=== PATIENT | male | born 1965 | race Caucasian/White ===

== ENCOUNTER 2016-07-07 23:27 | Emergency (ER) | payer OTHER | END 2016-07-08 00:45 | disposition home or self-care (01) | LOC: D.ER 23:27 | DX: R19.04 Left lower quadrant abdominal swelling, mass and lump (principal); F17.200 Nicotine dependence, unspecified, uncomplicated ==

== ENCOUNTER 2019-11-25 19:26 | Emergency (ER) | payer MEDICAID ==
[~2019-11-25] VITALS: Ht 177.8 cm; Wt 79.8 kg
[2019-11-25 19:54] VITALS: Ht 177.8 cm; Wt 79.8 kg
[2019-11-25 20:24] LABS: BASOPHILS 0.2 % (0-2); EOSINOPHILS 1.3 % (0-7); HEMATOCRIT 40.3 % (42.0-54.0); IMMATURE GRANULOCYTES 0.3 % (0-5); LYMPHOCYTES 24.1 % (15-50); MCH 31.7 pg (26.0-34.0); MCHC 34.7 g/dL (31.0-37.0); MCV 91.4 fL (80.0-100.0); MEAN PLATELET VOLUME 10.2 fL (7.4-10.4); MONOCYTES 11.5 % (2-11); NEUTROPHILS 62.6 % (40-80); PLATELET COUNT 186 10x3/uL (130-400); RBC 4.41 10x6/uL (4.20-6.10); RDW 13.4 % (11.5-14.5); WBC 14.4 10x3/uL (4.8-10.8)
[2019-11-25 20:37] LABS: APTT 25.5 SECONDS (22.8-39.4); INR 1.03 (0.85-1.17); PROTIME 13.5 SECONDS (11.6-15.0)
[2019-11-25 20:38] LABS: CALC OSMOLALITY 287 mosm/kg (275-300); CALCIUM 8.9 mg/dL (8.5-10.1); CHLORIDE - SERUM 105 mmol/L (98-107); D-DIMER-QUANTITATIVE 0.7 ug/mLFEU (0.20-0.54); GLUCOSE 94 mg/dL (74-106); POTASSIUM - SERUM 3.4 mmol/L (3.5-5.1); SODIUM 143 mmol/L (136-145); UREA NITROGEN 20 mg/dL (7-18); eGFR NON AFRICAN AMERICAN 83 mL/min (90-120)
[2019-11-25 20:44] LABS: ALBUMIN 4.1 g/dL (3.4-5.0); ALKALINE PHOSPHATASE 63 U/L (30-120); ALT (SGPT) 72 U/L (10-68); BILIRUBIN - TOTAL 2.58 mg/dL (0.2-1.3); PROTEIN - SERUM 7.8 g/dL (6.4-8.2)
[2019-11-25] MEDS ORDERED: ELIQUIS5 MG PO (22:32)
[2019-11-25 22:54] VITALS: BP 132/80
== END 2019-11-25 22:54 | disposition home or self-care (01) ==
LOC: D.ER 19:26
PROVIDERS: Family Medicine
DX: M79.601 Pain in right arm (principal); I82.621 Acute embolism and thrombosis of deep veins of right upper extremity; S42.001A Fracture of unspecified part of right clavicle, initial encounter for closed fracture; X58.XXXA Exposure to other specified factors, initial encounter

== ENCOUNTER 2019-11-27 21:00 | Inpatient (IN) | payer MEDICAID ==
[~2019-11-27] VITALS: Ht 177.8 cm; Wt 86.4 kg
[~2019-11-27 21:00] MED LIST: ELIQUIS5 MG PO
[2019-11-27 23:06] LABS: BASOPHILS 0.2 % (0-2); EOSINOPHILS 2.6 % (0-7); HEMATOCRIT 37.3 % (42.0-54.0); HEMOGLOBIN 12.9 g/dL (13.5-17.5); IMMATURE GRANULOCYTES 0.1 % (0-5); LYMPHOCYTES 26.7 % (15-50); MCH 31.5 pg (26.0-34.0); MCHC 34.6 g/dL (31.0-37.0); MEAN PLATELET VOLUME 10.3 fL (7.4-10.4); MONOCYTES 14.7 % (2-11); NEUTROPHILS 55.7 % (40-80); PLATELET COUNT 195 10x3/uL (130-400); WBC 10.2 10x3/uL (4.8-10.8)
[2019-11-27 23:10] LABS: APTT 33.1 SECONDS (22.8-39.4); INR 1.18 (0.85-1.17); PROTIME 14.9 SECONDS (11.6-15.0)
[2019-11-27 23:14] LABS: CALC OSMOLALITY 283 mosm/kg (275-300); CALCIUM 8.9 mg/dL (8.5-10.1); CARBON DIOXIDE 29.2 mmol/L (21.0-32.0); CHLORIDE - SERUM 105 mmol/L (98-107); CREATININE - SERUM 0.9 mg/dL (0.6-1.3); GLUCOSE 106 mg/dL (74-106); POTASSIUM - SERUM 3.3 mmol/L (3.5-5.1); SODIUM 141 mmol/L (136-145); UREA NITROGEN 20 mg/dL (7-18); eGFR NON AFRICAN AMERICAN > 90 mL/min (90-120)
[2019-11-27 23:23] LABS: ALBUMIN 3.5 g/dL (3.4-5.0); ALKALINE PHOSPHATASE 52 U/L (30-120); ALT (SGPT) 73 U/L (10-68); BILIRUBIN - TOTAL 1.72 mg/dL (0.2-1.3); PROTEIN - SERUM 7.2 g/dL (6.4-8.2)
[2019-11-28] VITALS (8 sets, daily range): BP systolic 96–131; BP diastolic 63–89; Ht 177.8 cm; Wt 86.4 kg
[2019-11-28 09:25] LABS: BASOPHILS 0.3 % (0-2); EOSINOPHILS 5.2 % (0-7); HEMATOCRIT 38.2 % (42.0-54.0); HEMOGLOBIN 13.3 g/dL (13.5-17.5); IMMATURE GRANULOCYTES 0.1 % (0-5); MCH 31.7 pg (26.0-34.0); MCHC 34.8 g/dL (31.0-37.0); MCV 91.2 fL (80.0-100.0); MEAN PLATELET VOLUME 10.9 fL (7.4-10.4); MONOCYTES 13.7 % (2-11); NEUTROPHILS 51.7 % (40-80); PLATELET COUNT 192 10x3/uL (130-400); RBC 4.19 10x6/uL (4.20-6.10); RDW 13.1 % (11.5-14.5); WBC 7.5 10x3/uL (4.8-10.8)
--- NOTE | 2019-11-28 09:31 | NUR ---
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 PATIENT WITH RIGHT ARM REDNESS AND SWELLING. REQUESTING PAIN MEDICATION. IV IN LEFT AC FOR SALINE LOCK . URINE TO LAB, RUBI COLORED.
--- NOTE | 2019-11-28 09:40 | NUR ---
CAPILLARY REFILL LESS THAN 3 SECONDS IN RIGHT ARM
[2019-11-28 09:43] LABS: CKMB 6.1 U/L (0.0-3.6); CREATINE KINASE 764 UL (21-232); TROPONIN-I < 0.017 ng/mL (0.000-0.060)
--- NOTE | 2019-11-28 12:54 | NUR ---
1100-CAPILLARLY REFILL LESS THAN 3 SECONDS AND PULSES PRESENT IN RIGHT ARM
[2019-11-28 14:48] LABS: CKMB 5.6 U/L (0.0-3.6); CREATINE KINASE 609 UL (21-232)
[2019-11-28 14:50] LABS: TROPONIN-I < 0.017 ng/mL (0.000-0.060)
--- NOTE | 2019-11-28 20:00 | NUR ---
PT SITTING UP IN BED WITHOUT DISTRESS, AOX4. RIGHT ARM SWOLLEN, RED AND WARM TO TOUCH. ENCOURAGED PT TO KEEP ELEVATED, OFFERED ICE PACK BUT PT REFUSED AT THIS TIME. DISCONNECTED FROM IV AND PT SHOWERED. DENIES OTHER NEEDS AT THIS TIME. CL IN REACH, WILL CTM
--- NOTE | 2019-11-28 21:30 | NUR ---
PT STATES PAIN 10/02, GAVE DILAUDID AND ZOFRAN ORDERED. DENIES OTHER NEEDS. WILL CTM
[2019-11-28 22:53] LABS: CKMB 5.7 U/L (0.0-3.6); CREATINE KINASE 464 UL (21-232)
[2019-11-28 22:56] LABS: TROPONIN-I < 0.017 ng/mL (0.000-0.060)
--- NOTE | 2019-11-28 23:30 | NUR ---
LEFT HAND IV RED AND SWOLLEN, REMOVED WITH CATH INTACT
[2019-11-29 00:29] VITALS: BP 113/63
[2019-11-29 04:00] VITALS: BP 120/77
[2019-11-29 06:47] LABS: BASOPHILS 0.3 % (0-2); HEMATOCRIT 37.7 % (42.0-54.0); HEMOGLOBIN 12.7 g/dL (13.5-17.5); IMMATURE GRANULOCYTES 0.1 % (0-5); LYMPHOCYTES 41.9 % (15-50); MCH 31.1 pg (26.0-34.0); MCHC 33.7 g/dL (31.0-37.0); MCV 92.4 fL (80.0-100.0); MEAN PLATELET VOLUME 11.5 fL (7.4-10.4); MONOCYTES 10.5 % (2-11); NEUTROPHILS 42.2 % (40-80); PLATELET COUNT 213 10x3/uL (130-400); RBC 4.08 10x6/uL (4.20-6.10); RDW 13.2 % (11.5-14.5); WBC 7.2 10x3/uL (4.8-10.8)
[2019-11-29 07:08] LABS: ALBUMIN 2.9 g/dL (3.4-5.0); ALKALINE PHOSPHATASE 48 U/L (30-120); ALT (SGPT) 61 U/L (10-68); BILIRUBIN - TOTAL 0.44 mg/dL (0.2-1.3); CALCIUM 8.6 mg/dL (8.5-10.1); CHLORIDE - SERUM 108 mmol/L (98-107); CREATININE - SERUM 0.7 mg/dL (0.6-1.3); GLUCOSE 103 mg/dL (74-106); POTASSIUM - SERUM 3.6 mmol/L (3.5-5.1); PROTEIN - SERUM 6.3 g/dL (6.4-8.2); SODIUM 141 mmol/L (136-145); eGFR NON AFRICAN AMERICAN > 90 mL/min (90-120)
[2019-11-29 07:14] LABS: CALC OSMOLALITY 280 mosm/kg (275-300); UREA NITROGEN 12 mg/dL (7-18)
--- NOTE | 2019-11-29 07:25 | NUR ---
PT LAYING ON BACK WITH RIGHT ARM ABOVE HEAD. RUTH IN BED WITH HIM. QUESTIONS ASKED ABOUT GUEST TRAY. GAVE PHONE NUMBER FOR THE KITCHEN. CL IN REACH. NO NEEDS AT THIS TIME. WCTM
[2019-11-29 08:23] VITALS: BP 111/51
[2019-11-29 11:54] VITALS: BP 124/63
[2019-11-29 17:34] VITALS: BP 104/68
--- NOTE | 2019-11-29 20:00 | NUR ---
PT SITTING UP IN BED WITHOUT DISTRESS, AOX4. SIGNIFICANT OTHER AT BEDSIDE. IV LEFT FA SL. PROVIDED PT WITH EXTRA PILLOWS TO PROP RIGHT ARM. PROVIDE ICE PACK FOR HAND. RIGHT ARM SWOLLEN, RED AND WARM TO TOUCH. ENCOURAGED PT TO KEEP IT PROPPED UP WHILE IN BED. DENIES OTHER NEEDS AT THIS TIME. CL IN REACH, WILL CTM
[2019-11-29 20:19] LABS: BILIRUBIN NEGATIVE (NEGATIVE); KETONE NEGATIVE (NEGATIVE); NITRITE NEGATIVE (NEGATIVE)
[2019-11-29 21:26] VITALS: BP 124/100
--- NOTE | 2019-11-29 21:30 | NUR ---
WENT TO TAKE HS MEDS TO PT BUT HE WANTED TO WAIT STATING HE WAS JUST ABOUT TO TAKE A WALK. TOLD PT TO CALL ONCE BACK TO ROOM
--- NOTE | 2019-11-29 22:30 | NUR ---
PT BACK TO ROOM AND REQUESTING SOMETHING FOR PAIN. GAVE HS MEDS AND DILAUDID FOR PAIN 7/10 IN RIGHT ARM. PT STATES IT STATES ABOUT 7-8 AT ALL TIMES. PT USING PILLOWS TO PROP ARM. REQUESTED AND GIVEN JELLO AND LEMON [place]. DENIES OTHER NEEDS. CL IN REACH, WILL CTN
[2019-11-30] VITALS: BP 109/67
--- NOTE | 2019-11-30 03:47 | NUR ---
PT STATES PAIN TO RIGHT ARM 8/10, GAVE DILAUDID ORDERED. WILL CTM
[2019-11-30 04:00] VITALS: BP 105/62
[2019-11-30 04:51] LABS: BASOPHILS 0.2 % (0-2); EOSINOPHILS 4.1 % (0-7); HEMATOCRIT 37.6 % (42.0-54.0); HEMOGLOBIN 12.7 g/dL (13.5-17.5); IMMATURE GRANULOCYTES 0.2 % (0-5); MCH 31.1 pg (26.0-34.0); MCHC 33.8 g/dL (31.0-37.0); MCV 92.2 fL (80.0-100.0); MEAN PLATELET VOLUME 11.4 fL (7.4-10.4); MONOCYTES 8.9 % (2-11); NEUTROPHILS 44.6 % (40-80); RBC 4.08 10x6/uL (4.20-6.10); RDW 13.2 % (11.5-14.5)
[2019-11-30 04:55] LABS: PLATELET COUNT 256 10x3/uL (130-400)
[2019-11-30 05:11] LABS: ALBUMIN 2.9 g/dL (3.4-5.0); ALKALINE PHOSPHATASE 49 U/L (30-120); ALT (SGPT) 58 U/L (10-68); BILIRUBIN - TOTAL 0.28 mg/dL (0.2-1.3); CALC OSMOLALITY 280 mosm/kg (275-300); CALCIUM 8.4 mg/dL (8.5-10.1); CARBON DIOXIDE 27.7 mmol/L (21.0-32.0); CHLORIDE - SERUM 106 mmol/L (98-107); GLUCOSE 109 mg/dL (74-106); POTASSIUM - SERUM 3.5 mmol/L (3.5-5.1); PROTEIN - SERUM 6.3 g/dL (6.4-8.2); SODIUM 141 mmol/L (136-145); UREA NITROGEN 9 mg/dL (7-18); VANCOMYCIN - TROUGH 5.1 ug/mL (10.0-20.0)
[2019-11-30 05:20] LABS: CREATININE - SERUM 0.9 mg/dL (0.6-1.3); eGFR NON AFRICAN AMERICAN > 90 mL/min (90-120)
--- NOTE | 2019-11-30 07:15 | NUR ---
A&O RESTING IN BED WITH EYES OPEN. NO C/O PAIN. NO S/S OF ACUTE DISTRESS NOTED. FAMILY AT BEDSIDE. DENIES ANY NEEDS AT THIS TIME. CALL LIGHT IN REACH. WILL CONTINUE TO MONITOR.
[2019-11-30] MEDS ORDERED: ELIQUIS5 MG PO (09:39)
[2019-11-30] MEDS ORDERED: HYDROCODON-ACE1 EAC7 PO (09:42)
[2019-11-30] MEDS ORDERED: KEFLEX500 MG PO (09:42)
[2019-11-30 09:54] VITALS: BP 122/77
--- NOTE | 2019-11-30 10:35 | MORECARE ---
CASE MANAGEMENT DISCHARGE SUMMARY PATIENT: JAYDON SINGLETON UNIT: [id number] ADM DATE: 11/27/19 AGE: 54 : 69 SEX: M ROOM/BED: D.2219 AUTHOR: ALLA AMBROSE PHYSICIAN: REFERRING PHYSICIAN: NEO GRIFFIN MD DATE OF SERVICE: 11/30/19 Discharge Plan Patient Name: JAYDON SINGLETON [facility] [facility] 1965 Planned Disposition: Home or Self Care Anticipated Discharge Date: Discharge Date: Expected LOS: Initial Reviewer: [email or web address] Initial Review Date: 11/27/2019 Generated: 11/30/19 11:34 am Patient Name: JAYDON SINGLETON Page [phone] at 1035 All edits/amendments must be made on the electronic document DICTATION DATE: 11/30/19 1034 [facility] COORDINATOR: ALEJANDRO 11/30/19 1034 RPT#: [id number] DC DATE: STATUS: ADM IN [facility] [address] [place] [address] END OF REPORT
--- NOTE | 2019-11-30 10:44 | MORECARE ---
CASE MANAGEMENT DISCHARGE SUMMARY PATIENT: JAYDON SINGLETON UNIT: [id number] ADM DATE: 11/27/19 AGE: 54 : 69 SEX: M ROOM/BED: D.2219 AUTHOR: HALIEDOC PHYSICIAN: REFERRING PHYSICIAN: NEO GRIFFIN MD DATE OF SERVICE: 11/30/19 Discharge Plan Patient Name: JAYDON SINGLETON Facility: [facility]:[place] : 1965 Planned Disposition: Home or Self Care Anticipated Discharge Date: Discharge Date: Expected LOS: Initial Reviewer: [email or web address] Initial Review Date: 11/27/2019 Generated: 11/30/19 11:43 am Comments DCP- Discharge Planning Updated by [email or web address]: Selam Benjamin on 11/30/19 9:[address] Patient Name: JAYDON SINGLETON Admission Status: ER Accout number: [id number] Admission Date: 11-27-2019 : 1965 Admission Diagnosis:PAIN IN RIGHT ARM Attending: NEO BARRERA Current LOS: 3 Anticipated DC Date: Planned Disposition: Home or Self Care Primary Insurance: MEDICAID [place] Discharge Planning Comments: CM met with patient to complete initial dc planning assessment. CM educated patient on the CM role and verbal consent given by patient to complete assessment. Patient lives at home where he is independent with his care. At discharge patient plans to return home and feels this is a safe discharge. Ruth will be his sweeper driver home and help him if he needs anything. CM discussed availability of home health, rehab services, and medical equipment. Patient denied known discharge needs at this time. CM will continue to follow and will assist as needed with dc plans/needs. Project Drilling Engineer: Selam Benjamin DCPIA - Discharge Planning Initial Assessment Updated by [email or web address]: Selam Benjamin on 11/30/19 10:41 am * Is the patient Alert and Oriented? Yes * How many steps to enter\exit or inside your home? * PCP NONE * Pharmacy [facility] * Preadmission Environment Home with Family * ADLs Independent * Equipment None * List name and contact numbers for known caregivers / representatives who currently or will assist patient after discharge: RUTH MARGARET * Verbal permission to speak to the caregivers and representatives has been obtained from the patient. Yes * Community resources currently utilized None * Additional services required to return to the preadmission environment? No * Can the patient safely return to the preadmission environment? Yes * Has this patient been hospitalized within the prior 30 days at any hospital? No Last DP export: 11/30/19 9:35 a Patient Name: JAYDON SINGLETON Page [phone] at 1044 All edits/amendments must be made on the electronic document DICTATION DATE: 11/30/19 104 ASSEMBLER GARMENT FORM: DM 11/30/19 1043 RPT#: [id number] DC DATE: STATUS: ADM IN [facility] [address] [place] [address] END OF REPORT
[2019-11-30 12:01] VITALS: BP 152/88
--- NOTE | 2019-11-30 12:07 | NUR ---
DISCHARGED PATIENT HOME VIA WHEELCHAIR, ACCOMPANIED BY STAFF. DISCONTINUED IV, CATHETER TIP INTACT. WENT OVER DISCHARGE INSTRUCTIONS WITH PATIENT, VERBALIZED UNDERSTANDING. GAVE PATIENT WRITTEN SCRIPT FOR NORCO 5. DENIES ANYTHING FURTHER.
[2019-11-30 14:11] LABS: ALPHA FETOPROTEIN -(TUMOR MRK) 1.7 ng/mL (0.0-8.3); CEA 2.6 ng/mL (0.0-4.7)
--- NOTE | 2019-11-30 17:51 | MORECARE ---
CASE MANAGEMENT DISCHARGE SUMMARY PATIENT: JAYDON SINGLETON UNIT: [id number] ADM DATE: 11/27/19 AGE: 54 : 69 SEX: M ROOM/BED: D.2219 AUTHOR: ALLA AMBROSE PHYSICIAN: REFERRING PHYSICIAN: NEO GRIFFIN MD DATE OF SERVICE: 11/30/19 Discharge Plan Patient Name: JAYDON SINGLETON Facility: [facility]:[place] : 1965 Planned Disposition: Home or Self Care Anticipated Discharge Date: Discharge Date: 11/30/2019 Expected LOS: Initial Reviewer: [email or web address] Initial Review Date: 11/27/2019 Generated: 11/30/19 6:51 pm Comments DCP- Discharge Planning Updated by [email or web address]: Selam Benjamin on 11/30/19 9:[address] Patient Name: JAYDON SINGLETON Admission Status: ER Accout number: [id number] Admission Date: 11-27-2019 : 1965 Admission Diagnosis:PAIN IN RIGHT ARM Attending: NEO BARRERA Current LOS: 3 Anticipated DC Date: Planned Disposition: Home or Self Care Primary Insurance: MEDICAID [place] Discharge Planning Comments: CM met with patient to complete initial dc planning assessment. CM educated patient on the CM role and verbal consent given by patient to complete assessment. Patient lives at home where he is independent with his care. At discharge patient plans to return home and feels this is a safe discharge. Ruth will be his solid waste truck driver home and help him if he needs anything. CM discussed availability of home health, rehab services, and medical equipment. Patient denied known discharge needs at this time. CM will continue to follow and will assist as needed with dc plans/needs. Mechanics Supervisor: Selam Benjamin DCPIA - Discharge Planning Initial Assessment Updated by [email or web address]: Selam Benjamin on 11/30/19 10:41 am * Is the patient Alert and Oriented? Yes * How many steps to enter\exit or inside your home? * PCP NONE * [facility]acy [facility] * Preadmission Environment Home with Family * ADLs Independent * Equipment None * List name and contact numbers for known caregivers / representatives who currently or will assist patient after discharge: RUTH MARGARET * Verbal permission to speak to the caregivers and representatives has been obtained from the patient. Yes * Community resources currently utilized None * Additional services required to return to the preadmission environment? No * Can the patient safely return to the preadmission environment? Yes * Has this patient been hospitalized within the prior 30 days at any hospital? No Last DP export: 11/30/19 9:44 a Patient Name: JAYDON SINGLETON Page [phone] at 1751 All edits/amendments must be made on the electronic document DICTATION DATE: 11/30/191750 DAMAGE ADJUSTER: ALEJANDRO 11/30/191750 RPT#: [id number] DC DATE:11/30/19 STATUS: DIS IN [facility] [address] [place] [address] END OF REPORT
== END 2019-11-30 12:09 | disposition home or self-care (01) | DRG 300 ==
LOC: D.ER 21:00 → D.MS 22:46 → D.EDHOLD 22:46 → D.MS 11-28 14:47
PROVIDERS: Emergency Medicine; Family Medicine; Internal Medicine Hematology & Oncology; ADMIT Family Medicine Adult Medicine; ATTEND Family Medicine Adult Medicine
DX: I82.621 Acute embolism and thrombosis of deep veins of right upper extremity (principal); L03.113 Cellulitis of right upper limb; F17.203 Nicotine dependence unspecified, with withdrawal; R55 Syncope and collapse; W18.30XA Fall on same level, unspecified, initial encounter; X58.XXXA Exposure to other specified factors, initial encounter; K73.9 Chronic hepatitis, unspecified; S42.001G Fracture of unspecified part of right clavicle, subsequent encounter for fracture with delayed healing; R06.00 Dyspnea, unspecified